=== PATIENT | female | born 1955 | race Caucasian/White ===

== ENCOUNTER → 2019-01-31 | Outpatient (CLI) | payer MEDICARE ==
[~2019-01-31] VITALS: Ht 158.8 cm; Wt 99.8 kg
[~2019-01-31] MED LIST: ALBU2.5V14 NEB; AMLO2.5T5 PO; AMLO5TAB10 PO; ASPI-630 PO; CHOL10003 PO; DOCU-109 PO; EZET10TA20 PO; FENO54TA PO; FLUO40CA2 PO; GABA300C18 PO; INSU100I17 SQ; INSU100V13 SQ; IOHEXOL 240 MG/ML 50ML VIAL. ONE; ISOS30TA4 PO; LATA2.5D3 OD; LEVO125T5 PO; LIDOCAINE 1%/EPI 1:100,000 20 ML VIAL. ONE; LIDOCAINE 2%/EPI 1:100,000 20 ML VIAL. IJ ONE; LORA10TA68 PO; MELA3TAB56 PO; METO-239 PO; MIDAZOLAM HCL/PF 2 MG/2 ML VIAL. IV ONE; MIDAZOLAM HCL/PF 2 MG/2 ML VIAL. ONE; NPH,100V SQ; OXYC1TAB22 PO; POLY17PO29 PO; TAMS0.4C97 PO; TRAZ-118 PO; VENTOLIN HFA18 GM INH; fentaNYL PF VIAL 100 MCG/2 ML VIAL IV ONE; fentaNYL PF VIAL 100 MCG/2 ML VIAL ONE
[2019-01-31 10:23] LABS: BASO % 1 % (0-3); EOS # 0.1 x10^3/uL (0.0-0.7); EOS % 3 % (0-3); HEMATOCRIT 34.4 % (36.0-47.0); HEMOGLOBIN 11.6 g/dL (12.0-15.5); LYMPH # 1.2 x10^3/uL (1.0-4.8); LYMPH % 27 % (24-48); MEAN CORPUSCULAR HEMOGLOBIN 31 pg (25-35); MEAN CORPUSCULAR HGB CONC 34 g/dL (31-37); MEAN CORPUSCULAR VOLUME 93 fL (79-100); MONO # 0.4 x10^3/uL (0.0-1.1); MONO % 10 % (0-9); NEUT # 2.7 x10^3/uL (1.8-7.7); NEUT % 59 % (31-73); PLATELET COUNT 157 x10^3/uL (140-400); RED BLOOD COUNT 3.71 x10^6/uL (3.50-5.40); RED CELL DISTRIBUTION WIDTH 17.3 % (11.5-14.5); WHITE BLOOD COUNT 4.6 x10^3/uL (4.0-11.0)
[2019-01-31 10:36] VITALS: BP 177/86
[2019-01-31 10:39] LABS: PROTHROMBIN TIME PATIENT 13.8 SEC (11.7-14.0)
[2019-01-31 12:27] VITALS: BP 163/90
[2019-01-31 13:03] VITALS: BP 151/75
[2019-01-31 13:15] VITALS: BP 176/68
[2019-01-31 13:30] VITALS: BP 173/75
--- NOTE | 2019-01-31 13:55 | NUR ---
pt A&O x3. she c/o chronic pain issues. she will take her meds when she gets home. dressing on rt chest area of old catheter site is clean and dry. new HD catheter site is clean and dry. vss. pt tolerating po well. pt does not really walk around she just transfers from bed to chair. d/c instructions reviewed w/ pt and spouse. questions answered. pt requested her Bg be checked. it was 295. she will go home and take her home meds and insulin. she was instructed to call and update her dialysis center. out to vehicle per w/c. to drive her home.
--- NOTE | 2019-02-01 09:41 | RAD ---
Procedure: Tunneled hemodialysis catheter placement 02/01/2019 9:36 AM Clinical Indication: Dialysis Catheter Nonfunctioning Sterility: All elements of maximal sterile barrier technique including the use of a cap, mask, sterile gown, sterile gloves, large sterile sheet, appropriate hand hygiene, and 2% chlorhexidine for cutaneous antisepsis (or acceptable alternative antiseptic per current guidelines) were followed for this procedure. Consent: The procedure was explained in its entirety to the patient or the patients designated bank representative by a member of the treatment team, including a discussion of the risks, benefits and commonly accepted alternatives to the procedure, as well as the expected consequences of no therapy whatsoever. Discussion of the risks included, but was not limited to, those that are most frequent and those that are rare but possibly severe or life-threatening, as well as the possibility of unforeseen complications. Technique and Findings: Following informed consent, a timeout procedure was performed. The patient was prepped and draped in the usual sterile fashion. The pre-existing dialysis catheter was removed with traction under fluoroscopy. Ultrasound interrogation of the right neck revealed patency and compressibility of the right internal jugular vein. A 21-gauge micropuncture was then used to gain access to this vein under ultrasound guidance. A hard copy ultrasound image was recorded. The needle was exchanged over a wire for a 4 [place] sheath which was used to guide an guidewire into the IVC. The skin over the right anterior chest wall was copiously anesthetized with 1% Lidocaine and a small dermatotomy was made. A 23 cm tipped cuff palindrome tunneled hemodialysis catheter was then tunneled subcutaneously towards the neck dermatotomy and deployed through a large caliber peel-away sheath under fluoroscopic guidance such that the distal tip resided in the mid right atrium. Manual flow rates were assessed and found to be within normal limits.The final position of the catheter was confirmed by fluoroscopy, with tip at the proximal right atrium with the patient supine. The catheter was then flushed, packed with Heparin, capped, and sutured to the skin. The neck dermatotomy was closed with Dermabond. No immediate complications were identified. Sedation: Conscious sedation was administered for 30 minutes. The patient was monitored by a qualified independent observer throughout the time of sedation. Please refer to the medical record for exact doses of medications utilized to achieve moderate sedation. Fluoroscopy time: 1.0 min Dose area product: 4 gycm2 Impression: Tunneled hemodialysis catheter placement as described
== END ==
LOC: INTRAD 09:40
PROVIDERS: ATTEND Internal Medicine Nephrology
DX: T82.49XA Other complication of vascular dialysis catheter, initial encounter (principal); Z79.899 Other long term (current) drug therapy; Z79.01 Long term (current) use of anticoagulants; Y83.8 Other surgical procedures as the cause of abnormal reaction of the patient, or of later complication, without mention of misadventure at the time of the procedure; Y92.89 Other specified places as the place of occurrence of the external cause
CPT/HCPCS: 36415; 36558; 76937; 77001; 82962; 85025; 85610; 99152; 99153; C1750; C1769; C1892; J0696; J2250; J3010; J3490; 36589

== ENCOUNTER 2019-02-13 06:56 | Outpatient (CLI) | payer MEDICARE ==
[~2019-02-13] VITALS: Ht 157.5 cm; Wt 100.7 kg
[~2019-02-13 06:56] MED LIST changes: -IOHEXOL 240 MG/ML 50ML VIAL. ONE; -LIDOCAINE 1%/EPI 1:100,000 20 ML VIAL. ONE; -LIDOCAINE 2%/EPI 1:100,000 20 ML VIAL. IJ ONE; -MIDAZOLAM HCL/PF 2 MG/2 ML VIAL. IV ONE; -MIDAZOLAM HCL/PF 2 MG/2 ML VIAL. ONE; -fentaNYL PF VIAL 100 MCG/2 ML VIAL IV ONE; -fentaNYL PF VIAL 100 MCG/2 ML VIAL ONE
[2019-02-13 07:34] VITALS: BP 150/73
[2019-02-13] MEDS ORDERED: LIDOCAINE 1%/EPI 1:100,000 20 ML VIAL. ONE (08:22)
[2019-02-13] MEDS ORDERED: MIDAZOLAM HCL/PF 5 MG/5 ML VIAL. ONE (08:45)
[2019-02-13] MEDS ORDERED: LIDOCAINE 1%/EPI 1:100,000 20 ML VIAL. INJ ONE (08:45)
[2019-02-13] MEDS ORDERED: fentaNYL PF VIAL 100 MCG/2 ML VIAL IV ONE (08:45)
[2019-02-13] MEDS ORDERED: fentaNYL PF VIAL 100 MCG/2 ML VIAL ONE (08:45)
[2019-02-13] MEDS ORDERED: MIDAZOLAM HCL/PF 5 MG/5 ML VIAL. IV ONE (08:45)
[2019-02-13 09:20] VITALS: BP 111/68
[2019-02-13 09:34] VITALS: BP 124/56
[2019-02-13 09:45] VITALS: BP 115/60
[2019-02-13 10:20] VITALS: BP 153/73
--- NOTE | 2019-02-13 10:46 | NUR ---
pt discharged to home with family. Instructions reviewed with pt.
--- NOTE | 2019-02-14 09:28 | RAD ---
Procedure: Left internal jugular tunneled hemodialysis catheter placement. Removal of right internal jugular tunneled hemodialysis catheter 02/13/2019 7:18 AM Clinical Indication: NON FUNCTIONING Sterility: All elements of maximal sterile barrier technique including the use of a cap, mask, sterile gown, sterile gloves, large sterile sheet, appropriate hand hygiene, and 2% chlorhexidine for cutaneous antisepsis (or acceptable alternative antiseptic per current guidelines) were followed for this procedure. Consent: The procedure was explained in its entirety to the patient or the patients designated cash posting representative by a member of the treatment team, including a discussion of the risks, benefits and commonly accepted alternatives to the procedure, as well as the expected consequences of no therapy whatsoever. Discussion of the risks included, but was not limited to, those that are most frequent and those that are rare but possibly severe or life-threatening, as well as the possibility of unforeseen complications. Technique and Findings: Following informed consent, a timeout procedure was performed. The patient was prepped and draped in the usual sterile fashion. Ultrasound evaluation of the left neck revealed patency and compressibility of the left internal jugular vein. All elements of maximal sterile barrier technique including the use of a cap, mask, sterile gown, sterile gloves, large sterile sheet, appropriate hand hygiene, and 2% chlorhexidine for cutaneous antisepsis (or acceptable alternative antiseptic per current guidelines) were followed for this procedure. A 21-gauge micropuncture was then used to gain access to this vein under ultrasound guidance. A hard copy ultrasound image was recorded. The needle was exchanged over a wire for a 4 [place] sheath which was used to guide an guidewire into the IVC. The skin over the left anterior chest wall was copiously anesthetized with 1% Lidocaine and a small dermatotomy was made. A 28 cm tipped cuff palindrome tunneled hemodialysis catheter was then tunneled subcutaneously towards the neck dermatotomy and deployed through a large caliber peel-away sheath under fluoroscopic guidance such that the distal tip resided in the mid right atrium. Manual flow rates were assessed and found to be within normal limits. The catheter was then flushed, capped, and sutured to the skin. The neck dermatotomy was closed with Dermabond. No immediate complications were identified. The pre-existing right internal jugular catheter was removed with traction. This is confirmed with fluoroscopic imaging. Sedation: [id number] conscious sedation was administered for 30 minutes. The patient was monitored by a qualified independent observer throughout the time of sedation. Please refer to the medical record for exact doses of medications utilized to achieve moderate sedation. Fluoroscopy time: 0.6 minutes Dose area product: 4 Gycm2 Impression: 1.Left internal jugular hemodialysis catheter placement 2. Removal of right internal jugular tunneled hemodialysis catheter MTDD
== END 2019-02-13 10:47 | disposition home or self-care (01) ==
LOC: INTRAD 06:56
PROVIDERS: ATTEND Internal Medicine Nephrology
DX: T82.898A Other specified complication of vascular prosthetic devices, implants and grafts, initial encounter (principal); Y83.8 Other surgical procedures as the cause of abnormal reaction of the patient, or of later complication, without mention of misadventure at the time of the procedure; Y92.89 Other specified places as the place of occurrence of the external cause
CPT/HCPCS: 36558; 36589; 76937; 77001; C1750; C1769; C1892; J0696; J2250; J3010; J3490; 36581; 99152; 99153

== ENCOUNTER 2019-04-04 09:52 | Outpatient (CLI) | payer MEDICARE ==
[~2019-04-04] VITALS: Ht 158.8 cm; Wt 99.8 kg
[2019-04-04 10:23] LABS: HEMATOCRIT 35.1 % (36.0-47.0); HEMOGLOBIN 11.8 g/dL (12.0-15.5); RED BLOOD COUNT 3.78 x10^6/uL (3.50-5.40); RED CELL DISTRIBUTION WIDTH 14.5 % (11.5-14.5); WHITE BLOOD COUNT 5.2 x10^3/uL (4.0-11.0)
[2019-04-04 10:33] LABS: PROTHROMBIN TIME PATIENT 12.9 SEC (11.7-14.0)
[2019-04-04 10:54] VITALS: BP 136/68
[2019-04-04] MEDS ORDERED: IOHEXOL 240 MG/ML 50ML VIAL. ONE (10:54)
[2019-04-04] MEDS ORDERED: LIDOCAINE 1%/EPI 1:100,000 20 ML VIAL. ONE (10:54)
[2019-04-04] MEDS ORDERED: fentaNYL PF VIAL 100 MCG/2 ML VIAL ONE (11:30)
[2019-04-04] MEDS ORDERED: MIDAZOLAM HCL/PF 2 MG/2 ML VIAL. ONE (11:30)
[2019-04-04] MEDS ORDERED: MIDAZOLAM HCL/PF 2 MG/2 ML VIAL. IV ONE (12:00)
[2019-04-04] MEDS ORDERED: IOHEXOL 240 MG/ML 50ML VIAL. IV ONE (12:00)
[2019-04-04] MEDS ORDERED: ceFAZolin 2GM PREMIX 2 GM/50 ML BAG IV ONE (12:00)
[2019-04-04] MEDS ORDERED: LIDOCAINE 1%/EPI 1:100,000 20 ML VIAL. INJ ONE (12:00)
[2019-04-04] MEDS ORDERED: fentaNYL PF VIAL 100 MCG/2 ML VIAL IV ONE (12:00)
[2019-04-04] MEDS ORDERED: HEPARIN for IV BOLUS 10,000 UNIT/10 ML VIAL. ONE (12:03)
[2019-04-04 12:24] VITALS: BP 177/70
[2019-04-04 12:30] VITALS: BP 169/68
[2019-04-04 12:45] VITALS: BP 137/74
[2019-04-04 13:00] VITALS: BP 143/66
[2019-04-04 13:22] VITALS: BP 145/65
--- NOTE | 2019-04-04 13:23 | NUR ---
Discharge Note: PATITO BACA Discharge instructions and discharge home medications reviewed with Spouse and a copy given. All questions have been answered and understanding verbalized. Patient ate lunch with no difficulties or issues. The following instructions and handouts were given: Moderate sedation and dialysis access line care. Discontinued lines and drains: right forearm, dressing clean dry intact. Patient discharged to home with via wheelchair in private vehicle.
--- NOTE | 2019-04-05 15:49 | RAD ---
Replacement of left internal jugular tunneled hemodialysis catheter. INDICATION: Catheter poorly functional Procedure: The procedure was explained in its entirety to the patient or the patients designated insurance healthcare representative by a member of the treatment team, including a discussion of the risks, benefits and commonly accepted alternatives to the procedure, as well as the expected consequences of no therapy whatsoever. Discussion of the risks included, but was not limited to, those that are most frequent and those that are rare but possibly severe or life-threatening, as well as the possibility of unforeseen complications. All elements of maximal sterile barrier technique including the use of a cap, mask, sterile gown, sterile gloves, large sterile sheet, appropriate hand hygiene, and 2% chlorhexidine for cutaneous antisepsis (or acceptable alternative antiseptic per current guidelines) were followed for this procedure. Fluoroscopic evaluation demonstrates pre-existing catheter to be somewhat sure with the tip at the cavoatrial junction. Contrast was administered. No fibrin sheath was identified. A guidewire was advanced to the pre-existing catheter which was removed over the wire and replaced with a new 28 cm palindrome catheter with its tip in the mid right atrium with the patient supine. The new catheter was found to flush and aspirate normally. The catheter was secured in place. Sterile dressings were applied. Total fluoroscopy time: 1.8 min Dose area product: 51 Gycm2 The procedures performed under conscious sedation including continuous cardiopulmonary monitoring via dedicated sedation nurse. [id number] sedation time: 30 minutes Impression: Replacement of left internal jugular tunneled hemodialysis catheter as described
== END 2019-04-04 13:40 | disposition home or self-care (01) ==
LOC: INTRAD 09:52
PROVIDERS: ATTEND Internal Medicine Nephrology
DX: T82.49XA Other complication of vascular dialysis catheter, initial encounter (principal); Y83.8 Other surgical procedures as the cause of abnormal reaction of the patient, or of later complication, without mention of misadventure at the time of the procedure; Y92.89 Other specified places as the place of occurrence of the external cause; Z79.01 Long term (current) use of anticoagulants
CPT/HCPCS: 36415; 36581; 75827; 77001; 85027; 85610; 99152; 99153; C1750; C1769; J0696; J2250; J3010; J3490; Q9966